=== PATIENT | female | born 1960 | race Caucasian/White ===

== ENCOUNTER 2019-04-03 18:47 | Emergency (ER) | payer BC ==
[~2019-04-03] VITALS: Ht 157.5 cm; Wt 59.0 kg
[2019-04-03] MEDS ORDERED: HYDROCODONE/ACETAMINOPHEN 5/325MG TABLET PO ONE (23:15)
[2019-04-03] MEDS ORDERED: KETOROLAC 60MG/2ML VIAL IM ONE (23:15)
[2019-04-04 01:49] VITALS: BP 144/87
== END 2019-04-04 01:53 | disposition home or self-care (01) ==
LOC: ER 18:47
DX: S42.401A Unspecified fracture of lower end of right humerus, initial encounter for closed fracture (principal); S60.211A Contusion of right wrist, initial encounter; S50.01XA Contusion of right elbow, initial encounter; F12.10 Cannabis abuse, uncomplicated; Z98.890 Other specified postprocedural states; Z98.51 Tubal ligation status; W01.0XXA Fall on same level from slipping, tripping and stumbling without subsequent striking against object, initial encounter; Y93.01 Activity, walking, marching and hiking; Y92.89 Other specified places as the place of occurrence of the external cause; Y99.8 Other external cause status
CPT/HCPCS: 73080; 73110; 96372; 99283; J1885